=== PATIENT | female | born 1990 | race Caucasian/White ===

== ENCOUNTER 2021-07-13 02:41 | Emergency (ER) | payer OTHER ==
[~2021-07-13] VITALS: Ht 167.6 cm; Wt 124.7 kg
--- NOTE | 2021-07-13 02:55 | NUR ---
BIBSELF C/O RUNNY NOSE, CONGESTED, AND SOB SINCE TUESDAY. BREATHING EVEN AND UNLABORED 100% RA LUNGS CLEAR BILATERALLY. PLACED ON MONITOR AND PULSE OX BREATHING EVEN AND UNLABORED ALL V/S STABLE.
[2021-07-13] MEDS ORDERED: AMLO10TA4 PO (04:30)
--- NOTE | 2021-07-13 04:42 | NUR ---
Patient discharged to home in stable condition. Written and verbal after care instructions given. Patient verbalizes understanding of instruction.
[2021-07-13 04:43] VITALS: BP 117/68
== END 2021-07-13 04:43 | disposition home or self-care (01) ==
LOC: ER 02:45
DX: J98.01 Acute bronchospasm (principal); R03.0 Elevated blood-pressure reading, without diagnosis of hypertension
CPT/HCPCS: 71045-TC